=== PATIENT | male | born 1955 | race Caucasian/White ===

== ENCOUNTER 2021-09-02 09:54 | Day surgery (SDC) | payer MEDICARE, BC ==
[~2021-09-02 09:54] MED LIST: Lactated Ringers 1,000 ML IV SCH
[2021-09-02] MEDS ORDERED: Propofol 200 MG/20 ML SDV ONE ×2 (10:30→12:50)
[2021-09-02] MEDS ORDERED: fentaNYL 100 MCG/2 ML SDV ONE (10:30)
[2021-09-02] MEDS ORDERED: Citric Acid/Sodium Citrate Solution 30 ML Cup PO ONE (11:52)
[2021-09-02] MEDS ORDERED: Simethicone Drops 40 MG/0.6 ML 30 ML Bottle ONE (12:08)
--- NOTE | 2021-09-03 09:37 | OR ---
PREOPERATIVE DIAGNOSIS: Intermittent gastroesophageal reflux disease that seems to wake him up in the middle of the night. He does have prior history of tobacco use, both smoking and chewing tobacco. POSTOPERATIVE DIAGNOSES: 1. Mild duodenitis. Cold biopsies taken from duodenal bulb. 2. Tiny sliding-type hiatal hernia with mild esophagitis and some glandular prominence. Cold biopsy x4 bites taken. 3. Minimal gastritis. Antral biopsies taken for path and H. pylori. PROCEDURE: Esophagogastroduodenoscopy with cold biopsy x3 sites using cold forceps. SURGEON: Thomas Hodges M.D. ANESTHESIA: Monitored anesthesia care. DESCRIPTION OF PROCEDURE: Ramesh is a 66-year-old male who was brought to the endoscope suite after discussion of risks and benefits (including but not limited to reaction to medication, bleeding, infection, aspiration, perforation). Informed consent was obtained for monitored anesthesia care and esophagogastroduodenoscopy along with possible biopsy and/or dilatation. Pre-procedure exam including oral cavity unremarkable. IV, oxygen, and monitors were placed. Patient was placed in the left lateral position and sedation was administered. A bite block was placed gently and scope lightly lubricated and passed through the bite block and over the tongue. Hypopharynx and vocal cords were visualized and unremarkable. Scope was passed through the cricopharynx and into the esophagus. The scope was then passed through the distal esophagus and the GE junction was visualized and photographed. The GE junction revealed tiny hiatal hernia, sliding type, with some mild esophagitis. There was some prominent glandular-appearing tissue and this was biopsied x4 bites using cold forceps. This was done on the way out. The scope was advanced into the stomach, gastric terry suctioned. Pylorus was identified and intubated and then the scope was advanced to the third portion of the duodenum. The second and third portions of the duodenum were unremarkable. The duodenal bulb was visualized and did reveal some mild duodenitis with some cobblestone glandular tissue. Cold biopsies were taken from this area. Scope was brought back into the stomach. The pylorus and antrum were unremarkable except for maybe some minimal gastritis. Biopsies for H pylori and path were obtained from the antrum. The scope was then retroflexed to visualize the angularis, fundus, body, and cardia. These were unremarkable except for some minimal scattered gastritis. The stomach was desufflated of air and then the scope was slowly withdrawn, and the esophagus was closely visualized during withdrawal all the way into the posterior pharynx and this was unremarkable. The patient tolerated the procedure well and went to recovery in stable condition. The patient was monitored until at baseline status. Findings and discharge instructions were reviewed and the patient was discharged in good condition. COMPLICATIONS: None. TOTAL TIME: 9 minutes. ESTIMATED BLOOD LOSS: About 2 mL. RECOMMENDATIONS/FOLLOWUP: We will await results of path report and send out the letter with these results. I am going to have him hold his aspirin for 3 days to limit any chance of bleeding from biopsy sites. I did do prescription for famotidine 20 mg which he could use once daily as needed. The patient can consider possibly stopping aspirin, but he can confer with his PCP on this as well. I would like to kindly thank Dr. Marilin Santoro for this referral. DMB: 09/02/2021 14:37:15 MODL: 09/02/2021 15:49:10 /[id number]
--- NOTE | 2021-09-03 09:42 | OR ---
PREOPERATIVE DIAGNOSES: Screening colonoscopy. This is the patient's first colonoscopy. He denies any family history of colon cancer. There has been a recent change in bowel movement, especially with some loose stools in the morning. POSTOPERATIVE DIAGNOSES: 1. Two small polyps removed, both using cold forceps. a. 4 mm polyp at 85 cm. b. 2 mm polyp at 20 cm. 2. Normal-appearing distal ileum. PROCEDURE: Colonoscopy with polypectomy x2 using cold forceps. ANESTHESIA: Monitored anesthesia care. BOWEL PREP: Fair. Ramesh is a 66-year-old male who was brought to the endoscopy suite after discussing risks and benefits of the procedure. Informed consent was obtained for conscious sedation and colonoscopy with or without biopsy and/or polypectomy. We also discussed possibility of missed lesions. Pre-procedure exam was unremarkable. IV, oxygen, and monitors were placed. The patient was placed in the left lateral decubitus position. Sedation was administered and a digital rectal exam was performed and unremarkable. Colonoscope was passed into the rectum and slowly advanced all the way to the cecum. The patient did require some scope maneuvering including the scope stiffening and abdominal pressure to obtain cecal intubation. Cecum was viewed. Ileocecal valve was intubated and distal ileum was normal in appearance. The colonoscope was slowly withdrawn and the mucosa was closed observed in a direct circumferential manner. The ascending colon was remarkable for a 4 mm polyp at 85 cm, removed using cold forceps times a couple bites. The transverse colon was unremarkable. The descending colon was unremarkable. The sigmoid colon revealed 2 mm polyp at 20 cm, removed using cold forceps. Retroflexion was performed and rectal mucosa was unremarkable. Scope was removed. The patient tolerated the procedure well. The patient was monitored until that baseline status. Discharge instructions were reviewed and the patient was discharged in good condition. COMPLICATIONS: None. TOTAL TIME: 22 minutes. ESTIMATED BLOOD LOSS: About 1 mL. RECOMMENDATIONS/FOLLOWUP: We will await results of path report to determine ideal followup interval. We will have the patient hold his aspirin for 3 days to limit the chance of any bleeding from polypectomy sites. I would like to kindly thank Dr. Marilin Santoro for this referral. DMB: 09/02/2021 14:41:56 MODL: 09/02/2021 21:32:19 /[id number]
== END 2021-09-02 14:45 | disposition home or self-care (01) ==
LOC: VM.SDS 09:54
PROVIDERS: ATTEND Family Medicine
DX: Z12.11 Encounter for screening for malignant neoplasm of colon (principal); D12.2 Benign neoplasm of ascending colon; K29.90 Gastroduodenitis, unspecified, without bleeding; K44.9 Diaphragmatic hernia without obstruction or gangrene; K21.00 Gastro-esophageal reflux disease with esophagitis, without bleeding; E66.9 Obesity, unspecified; I10 Essential (primary) hypertension; E78.5 Hyperlipidemia, unspecified; R73.01 Impaired fasting glucose; K31.89 Other diseases of stomach and duodenum; I78.1 Nevus, non-neoplastic; Z87.891 Personal history of nicotine dependence; Z98.890 Other specified postprocedural states; Z79.899 Other long term (current) drug therapy; Z79.82 Long term (current) use of aspirin; Z88.0 Allergy status to penicillin; Z68.33 Body mass index [BMI] 33.0-33.9, adult
CPT/HCPCS: 00812; 88305; A9270-GY; J2704; J3010; J7120

== ENCOUNTER 2025-09-04 10:35 | Day surgery (SDC) | payer MEDICARE, BC ==
[~2025-09-04 10:35] MED LIST changes: -Lactated Ringers 1,000 ML IV SCH; +Propofol 200 MG/20 ML SDV ONE; +fentaNYL 100 MCG/2 ML SDV ONE
[2025-09-04] MEDS: Lactated Ringers 1,000 ML IV SCH (10:57)
== END 2025-09-04 14:00 | disposition home or self-care (01) ==
LOC: VM.SDS 10:35
PROVIDERS: ATTEND Family Medicine
DX: Z12.11 Encounter for screening for malignant neoplasm of colon (principal); K63.5 Polyp of colon; K57.30 Diverticulosis of large intestine without perforation or abscess without bleeding; I10 Essential (primary) hypertension; E78.5 Hyperlipidemia, unspecified; E66.811 Obesity, class 1; Z68.32 Body mass index [BMI] 32.0-32.9, adult; Z79.899 Other long term (current) drug therapy
CPT/HCPCS: 45380; J2704; J3010; J7120; 00811; 88305; 99100